=== PATIENT | male | born 1990 | race Caucasian/White ===

== ENCOUNTER 2018-08-31 13:12 | Emergency (ER) | payer OTHER ==
[~2018-08-31] VITALS: Ht 170.2 cm; Wt 67.1 kg
[2018-08-31 13:31] VITALS: BP 120/77
[2018-08-31] MEDS ORDERED: MUPI22OI2 TP (13:51)
--- NOTE | 2018-08-31 13:51 | PHYS DOC ---
Past History Past Medical History: Other Past Surgical History: No Surgical History Alcohol Use: None Drug Use: None Adult General Chief Complaint Chief Complaint: FACE PROBLEM HPI HPI 27-year-old male presents with pain in his lips. The patient had an outbreak of HSV 1 about 2 weeks ago. He took Valtrex as he normally does. It seemed like the lesions were getting better, and then he began to have pain and inflammation all over his upper and lower lips. There is also some light yellow crusting mostly in the morning. The patient does regularly use Chapstick. He stopped using Chapstick yesterday and threw away his container. He has also taken 1 g Valtrex per day for the last 3 days ending yesterday. This is not a change in his lips. They feel like a burning sensation. He has never had anything like this as it seems different than his usual cold sores. Patient denies fever or chills. He was sent here by [facility]. Review of Systems Review of Systems Constitutional: Denies fever or chills [] Eyes: Denies change in visual acuity, redness, or eye pain [] HENT: Denies nasal congestion or sore throat [] Respiratory: Denies cough or shortness of breath [] Cardiovascular: No additional information not addressed in HPI [] GI: Denies abdominal pain, nausea, vomiting, bloody stools or diarrhea [] : Denies dysuria or hematuria [] Musculoskeletal: Denies back pain or joint pain [] Integument: Patient has some erythema and yellow crusting on his upper and lower lips. This appears consistent with impetigo.[] Neurologic: Denies headache, focal weakness or sensory changes [] Endocrine: Denies polyuria or polydipsia [] All other systems were reviewed and found to be within normal limits, except as documented in this note. Physical Exam Physical Exam Constitutional: Well developed, well nourished, no acute distress, non-toxic appearance. [] HENT: Normocephalic, atraumatic, bilateral external ears normal, oropharynx moist, no oral exudates, nose normal. [] Eyes: PERRLA, EOMI, conjunctiva normal, no discharge. [] Neck: Normal range of motion, no tenderness, supple, no stridor. [] Cardiovascular:Heart rate regular rhythm, no murmur [] Lungs & Thorax: Bilateral breath sounds clear to auscultation [] Abdomen: Bowel sounds normal, soft, no tenderness, no masses, no pulsatile mas ses. [] Skin: Warm, dry, no erythema, no rash. [] Back: No tenderness, no CVA tenderness. [] Extremities: No tenderness, no cyanosis, no clubbing, ROM intact, no edema. [] Neurologic: Alert and oriented X 3, normal motor function, normal sensory function, no focal deficits noted. [] Psychologic: Affect normal, judgement normal, mood normal. [] Current Patient Data Vital Signs Vital Signs Date Time Temp Pulse Resp B/P (MAP) Pulse Ox O2 Delivery O2 Flow Rate FiO2 08/31/18 13:31 97.8 50 18 100 Room Air EKG EKG [] Radiology/Procedures Radiology/Procedures [] Course & Med Decision Making Course & Med Decision Making Pertinent Labs and Imaging studies reviewed. (See chart for details) The patient appears to have impetigo. It is possible that he is headache, skin infection break out after his HSV flare up. I will treat him with mupirocin 2% ointment. I have also advised that he threw away his current Chapstick and only uses single use lip treatment for moisture for the next several days. He is stable for discharge at this time. [] Dragon Disclaimer Dragon Disclaimer This electronic medical record was generated, in whole or in part, using a voice recognition dictation system. Departure Departure: Impression: Primary Impression: Impetigo Disposition: 01 HOME, SELF-CARE Condition: STABLE Referrals: PCP,NO (PCP) Patient Instructions: Impetigo Scripts Mupirocin (MUPIROCIN) 22 Gm Oint...g. 1 DEV TP TID for lip infection, #15 GM Prov: MARA OLEARY DO 08/31/18 MARA OLEARY DO August 31, 2018 13:51
== END 2018-08-31 13:56 | disposition home or self-care (01) ==
LOC: ER 13:12
DX: L01.00 Impetigo, unspecified (principal)
CPT/HCPCS: 99283